=== PATIENT | male | born 1965 | race Caucasian/White ===

== ENCOUNTER 2023-12-10 11:55 | Emergency (ER) | payer MEDICARE ==
[~2023-12-10] VITALS: Ht 177.8 cm; Wt 90.9 kg
[2023-12-10 12:50] LABS: BASO # 0.03 K/mm3 (0.02-0.10); EOS # 0.17 K/mm3 (0.04-0.40); EOS % 1.1 % (0.0-4.0); HEMATOCRIT 43.6 % (42.0-52.0); HEMOGLOBIN 14.2 g/dL (13.5-18.0); LYMPH# 1.53 K/mm3 (1.50-4.00); MEAN CELL VOLUME 91 fl (78-100); MEAN CORPUSCULAR HEMOGLOBIN 30 pg (27-31); MEAN CORPUSCULAR HGB CONC 33 g/dL (33-37); MEAN PLATELET VOLUME 8.7 fl (7.4-10.4); MONO # 0.79 K/mm3 (0.20-0.80); NEU # 12.79 K/mm3 (1.40-6.50); PLATELET COUNT 230 K/mm3 (130-400); RED CELL DISTRIBUTION WIDTH 12.2 % (11.5-14.5); WHITE BLOOD COUNT 15.3 K/mm3 (4.8-10.8)
[2023-12-10 12:54] LABS: CALCIUM 9.1 mg/dL (8.3-10.5)
[2023-12-10 12:58] LABS: ALBUMIN 3.9 g/dL (3.5-5.0)
[2023-12-10 13:00] LABS: TOTAL PROTEIN 6.7 g/dL (6.4-8.3)
[2023-12-10 13:02] LABS: TOTAL BILIRUBIN 0.5 mg/dL (0.2-1.2)
[2023-12-10] MEDS ORDERED: Sulfamethoxazole/Trimethoprim 800-160 MG TAB PO ONE (13:30)
[2023-12-10] MEDS ORDERED: Cephalexin 250 MG CAP PO ONE (14:00)
[2023-12-10] MEDS ORDERED: BETAMETHASONE D0.05% TOP (14:11)
[2023-12-10] MEDS ORDERED: CEPHALEXIN500 M1 PO (14:11)
[2023-12-10 14:50] VITALS: BP 168/78
== END 2023-12-10 14:55 | disposition home or self-care (01) ==
LOC: ED 11:55
PROVIDERS: Physician Assistant
DX: L03.113 Cellulitis of right upper limb (principal); L03.114 Cellulitis of left upper limb